=== PATIENT | male | born 1985 | race African-American/Black ===

== ENCOUNTER 2024-12-28 11:38 | Emergency (ER) | payer BC, SELFPAY ==
[2024-12-28] VITALS (10 sets, daily range): BP systolic 105–125; BP diastolic 62–87; PULSE 68–77; RESP 16–18; TEMP 36.7–36.9; O2SAT 98–100
--- NOTE | 2024-12-28 11:54 | ED_ITS ---
HPI - General Adult General Chief complaint: Nausea/Vomiting/Diarrhea Stated complaint: over heated Time Seen by Provider: 12/28/24 11:44 Source: patient Mode of arrival: ambulatory Limitations: no limitations History of Present Illness HPI narrative: 39 years old male, healthy otherwise been working outdoors in high temperature running above 90 F for average 5-8 hours a day. Yesterday had quite a bit of vomiting, lightheadedness, sweating blurry vision, been drinking lot of fluids without improvement, today feeling tired and weak. He denies any chest pain or shortness of breath or abdominal pain or back pain or headache Related Data Home Medications ?Medication ?Instructions ?Recorded ?Confirmed ?Last Taken ?Type No Home Medications 12/28/24 12/28/24 Unknown History Allergies Allergy/AdvReac Type Severity Reaction Status Date / Time No Known Allergies Allergy Verified 12/28/24 11:41 Review of Systems 2 Review of Systems: All systems reviewed & are unremarkable except as noted in HPI and below Exam 2 Narrative: General appearance: Well-developed, well-nourished Skin: Normal color Head: Normocephalic, nontraumatic Eyes: Clear conjunctiva ENT: Oropharynx normal, ears normal, nose normal Neck: Supple, nontender Chest and respiratory: Airway patent, no respiratory distress, no accessory muscle use Heart: Regular rate/rhythm Abdomen: Soft, nontender, no organomegaly, quiet bowel sounds Vascular: Normal peripheral pulses, normal capillary refill. Musculoskeletal: Normal range of motion, nontender back Neurologic: Alert and oriented ?3, [employer] is normal as tested, no gross motor deficit Course Vital Signs Vital signs: Vital Signs Temperature 36.9 C 12/28/24 11:41 Pulse Rate 77 12/28/24 11:41 Respiratory Rate 16 12/28/24 11:41 Blood Pressure 122/80 12/28/24 11:41 Pulse Oximetry 100 12/28/24 11:41 Oxygen Delivery Room Air 12/28/24 11:41 Temperature 36.7 C 12/28/24 14:06 Pulse Rate 68 12/28/24 14:06 Respiratory Rate 18 12/28/24 14:06 Blood Pressure 125/87 12/28/24 14:06 Pulse Oximetry 100 12/28/24 14:06 Oxygen Delivery Room Air 12/28/24 14:06 Medical Decision Making [facility] Narrative Medical decision making narrative: working in a hot environment over the last few days with high temperature vital signs are stable Physical examination is unremarkable Differential diagnosis include heat exertion, dehydration, electrolyte imbalance, rhabdomyolysis Blood workup today includes CBC, CMP and CPK showed creatinine of 1.4, CPK of 696. REPEATED BLOOD WORKUP SHOWED CREATININE OF 1.3, CPK OF 670. PATIENT FEELING MUCH BETTER, TWO DAYS OF WORK TO BE INDOORS, ENCOURAGE FLUID INTAKE 3-3.5 L A DAY REPEAT BLOOD WORKUP IN 3 DAYS. THE PT WAS DISCHARGED TO HOME.THE PT,S CONDITION UPON DISCHARGE WAS FAIR,EDUCATION WAS PROVIDED TO THE PT IN REFERENCE TO THE FINAL IMPRESSION,DISCHARGE STUDY RESULTS,TREATMENT,PROGNOSIS AND NEED FOR FOLLOW UP . Vital Signs Vital Signs: Vital Signs Temperature 36.9 C 12/28/24 11:41 Pulse Rate 77 12/28/24 11:41 Respiratory Rate 16 12/28/24 11:41 Blood Pressure 122/80 12/28/24 11:41 Pulse Oximetry 100 12/28/24 11:41 Oxygen Delivery Room Air 12/28/24 11:41 Temperature 36.7 C 12/28/24 14:06 Pulse Rate 68 12/28/24 14:06 Respiratory Rate 18 12/28/24 14:06 Blood Pressure 125/87 12/28/24 14:06 Pulse Oximetry 100 12/28/24 14:06 Oxygen Delivery Room Air 12/28/24 14:06 Lab Data 12/28/24 11:54 12/28/24 13:24 Labs: Lab Results 12/28/24 12/28/24 Range/Units 11:54 13:24 WBC 6.9 (4.8-10.8) K/mm3 RBC 5.09 (4.70-6.10) M/mm3 Hgb 15.1 (14.0-18.0) g/dL Hct 45.4 (40.0-54.0) % MCV 89.2 (78.0-102.0) fL MCH 29.7 (27.0-31.0) pg MCHC 33.3 (32-36) g/dL RDW 12.6 (11.6-14.4) % Plt Count 349 (150-420) K/mm3 MPV 9.2 (8.7-11.0) fl Immature Gran % (Auto) 0.4 H (0.0-0.0) % Neut % (Auto) 49.4 L (50.0-70.0) % Lymph % (Auto) 38.2 (18.0-42.0) % [place] % (Auto) 10.3 (2.0-11.0) % Eos % (Auto) 1.3 (1.0-6.0) % Baso % (Auto) 0.4 (0.0-1.0) % Lymph # (Auto) 2.64 (1.10-4.50) K/mm3 [place] # (Auto) 0.71 (0.10-0.90) K/mm3 Eos # (Auto) 0.09 (0.02-0.50) K/mm3 Baso # (Auto) 0.03 (0.00-0.10) K/mm3 Abs Immat Gran (auto) 0.03 H (0.00-0.00) K/mm3 Absolute Neuts (auto) 3.41 (1.70-7.20) K/mm3 Absolute Nucleated RBC 0.00 (0.00-0.00) K/mm3 Nucleated RBC % 0.0 (0-0.0) % Sodium 138 138 (137-145) mmol/L Potassium 3.5 3.4 (3.4-5.0) mmol/L Chloride 102 107 (98-107) mmol/L Carbon Dioxide 29 25 (22-30) mmol/L Anion Gap 7 6 (4-12) mmol/L BUN 19 17 (9-20) mg/dL Creatinine 1.48 H 1.32 H (0.7-1.3) mg/dL Estim Creat Clear Calc 77 86 ml/min Estimated GFR 53 L > 60 (59 - ) Glucose 107 93 (65-110) mg/dL Calculated Osmolality 288 287 (285-295) mOsm/kg Calcium 9.1 8.2 L (8.4-10.2) mg/dL Total Bilirubin 1.5 H (0.2-1.3) mg/dL AST 41 (17-59) U/L ALT 27 (6-50) U/L Alkaline Phosphatase 56 (38-126) U/L Total Creatine Kinase 696 H 670 H (55-170) U/L Total Protein 7.8 (6.3-8.2) g/dL Albumin 4.5 (3.5-5.1) g/dL Critical Care Time Critical Care Time Critical Care Time: No Discharge Plan Discharge Clinical Impression: Heat exhaustion, Acute dehydration, Rhabdomyolysis Patient Disposition: Home Condition: Improved Instructions: Dehydration (ED), Heat Exhaustion (ED), Rhabdomyolysis (ED) Additional Instructions: RETURN IF SYMPTOMS ARE WORSENING , CALL YOUR FAMILY PHYSICIAN FOR APPOINTMENT, TAKE TYLENOL NEEDED FOR ACHES AND PAIN, CONTINUE HOME MEDICATIONS. DRINK 3-3 AND HAVE L OF FLUID DAILY FOR THE NEXT 3 DAYS CHECK ELECTROLYTE LEVELS WITH YOUR FAMILY PHYSICIAN IN 3 DAYS STAY INDOORS, 48 HOURS Patient Language: Irish Prescriptions: No Action No Home Medications Follow-up/Referrals: UNKNOWN,DOCTOR [Non-Staff] - Stand Alone Forms: Work/School Release IP
[2024-12-28] MEDS: SODIUM CHLORIDE 0.9% IV 2,000 ML 999 ML IV CONT (11:59)
[2024-12-28 12:00] LABS: Hematocrit 45.4 % (40.0-54.0); Hemoglobin 15.1 g/dL (14.0-18.0); Immature Granulocyte Percent A 0.4 % (0.0-0.0); Lymphocytes Absolute Auto 2.64 K/mm3 (1.10-4.50); Mean Corpuscular HGB Conc 33.3 g/dL (32-36); Mean Corpuscular Hemoglobin 29.7 pg (27.0-31.0); Mean Corpuscular Volume 89.2 fL (78.0-102.0); Nucleated Red Blood Cells Absolute Auto 0.00 K/mm3 (0.00-0.00); Nucleated Red Blood Cells Perc 0.0 % (0-0.0); Platelet Count Result 349 K/mm3 (150-420); Red Blood Count 5.09 M/mm3 (4.70-6.10); White Blood Count 6.9 K/mm3 (4.8-10.8)
[2024-12-28 12:11] LABS: Alanine Aminotransferase 27 U/L (6-50); Albumin Level 4.5 g/dL (3.5-5.1); Alkaline Phosphatase 56 U/L (38-126); Anion Gap 7 mmol/L (4-12); Aspartate Amino Transferase 41 U/L (17-59); Bilirubin,Total 1.5 mg/dL (0.2-1.3); Blood Urea Nitrogen 19 mg/dL (9-20); Calcium 9.1 mg/dL (8.4-10.2); Carbon Dioxide 29 mmol/L (22-30); Chloride 102 mmol/L (98-107); Creatine Kinase 696 U/L (55-170); Estimated CRCL calculation 77 ml/min; Estimated Glomerular Filt Rate 53; Glucose 107 mg/dL (65-110); Osmolality Calculated 288 mOsm/kg (285-295); Potassium 3.5 mmol/L (3.4-5.0); Sodium 138 mmol/L (137-145); Total Protein 7.8 g/dL (6.3-8.2)
--- OUTSIDE RECORDS SUMMARY | 2024-12-28 12:34 | XMS_ITS | Clinical Summary ---
Author Organization [facility] Address [address] [place] [place] [address] Care Team Providers Care Ball Racker Name Role Phone Unavailable Primary Care Provider Unavailabl e Allergies No known active allergies Medications No known medications Active Problems No known active problems Social History Tobacco Use Types Packs/Day Years Used Date Smoking Tobacco: Never Assessed Alcohol Use Standard Drinks/Week Comments Yes 0 (1 standard drink = 0.6 oz pur e alcohol) Sex and Gender Information Value Date Recorded Sex Assigned at Not on file Legal Sex Male 10:15 AM [employer] Gender Identity Not on file Sexual Orientation Not on file Last Filed Vital Signs Vital Sign Reading Time Taken Comments Blood Pressure 113/73 10/29/2020 3:54 PM CDT Pulse 76 10/29/2020 3:54 PM CDT Temperature 37.1 C (98.8 F) 10/29/2020 3:54 PM CDT Respiratory Rate 18 10/29/2020 3:54 PM CDT Oxygen Saturation 98% 10/29/2020 3:54 PM CDT Inhaled Oxygen Concentration - - Weight 102.1 kg (225 lb) 10/29/2020 3:54 PM CDT Height 185.4 cm (6' 1) 10/29/2020 3:54 PM CDT Body Mass Index 29.69 10/29/2020 3:54 PM CDT Plan of Treatment Health Maintenance Due Date Last Done Comments DTAP/TDAP/TD VACCINES (1 - Tdap) 2005 HEPATITIS B VACCINES (1 of 3 - 19+ 3-dose series) 2005 INFLUENZA VACCINE (#1) 2025 HPV VACCINES Aged Out No longer eligi ble based on patient's age to complete this topic Insurance [employer]
[2024-12-28 13:39] LABS: Anion Gap 6 mmol/L (4-12); Blood Urea Nitrogen 17 mg/dL (9-20); Calcium 8.2 mg/dL (8.4-10.2); Carbon Dioxide 25 mmol/L (22-30); Chloride 107 mmol/L (98-107); Creatine Kinase 670 U/L (55-170); Estimated CRCL calculation 86 ml/min; Estimated Glomerular Filt Rate > 60; Glucose 93 mg/dL (65-110); Osmolality Calculated 287 mOsm/kg (285-295); Potassium 3.4 mmol/L (3.4-5.0); Sodium 138 mmol/L (137-145)
== END 2024-12-28 14:10 | disposition home or self-care (01) ==
PROVIDERS: Emergency Provider Emergency Medicine; Referring Provider Internal Medicine
DX: T67.5XXA Heat exhaustion, unspecified, initial encounter (principal); E86.0 Dehydration; M62.82 Rhabdomyolysis; X58.XXXA Exposure to other specified factors, initial encounter
CPT/HCPCS: 36415; 80048; 80053; 82550; 85025; 96360; 96361; 99283; J7030